=== PATIENT | female | born 1995 | race Caucasian/White ===

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

== ENCOUNTER → 2017-02-08 | Outpatient (REF) | payer OTHER ==
[~2017-02-08] MED LIST changes: +ACET50TA PO; +COLA100C3 PO; +IBUP-1114 PO; +MOM30SS PO
== END ==
LOC: M LAB REF 17:38
PROVIDERS: ATTEND Physician Assistant
DX: J02.9 Acute pharyngitis, unspecified (principal)

== ENCOUNTER → 2018-02-14 | Outpatient (REF) | payer OTHER ==
[2018-02-14 19:28] LABS: APPEARANCE, URINE CLEAR (CLEAR); BACTERIA, URINE AUTO 1+ (NEGATIVE); BILIRUBIN, URINE AUTO NEGATIVE (NEGATIVE); BLOOD, URINE BLOOD 1+ (NEGATIVE); COLOR, URINE YELLOW (YELLOW); GLUCOSE, URINE (UA) AUTO NEGATIVE (NEGATIVE); KETONE, URINE AUTO NEGATIVE (NEGATIVE); LEUKOCYTE ESTERASE, URINE AUTO 2+ (NEGATIVE); NITRITE, URINE AUTO NEGATIVE (NEGATIVE); PROTEIN, URINE AUTO NEGATIVE (NEGATIVE); RBC, URINE AUTO 9 /HPF (0-3); SPECIFIC GRAVITY URINE AUTO 1.018 (1.002-1.035); SQUAMOUS EPITHELIAL CELL UR AU 0 /HPF (0-6); UROBILINOGEN, URINE AUTO 0.2 mg/dL (0.0-2.0); WBC, URINE AUTO 33 /HPF (0-3)
== END ==
LOC: M LAB REF 09:18
DX: N39.0 Urinary tract infection, site not specified (principal)

== ENCOUNTER 2018-05-23 22:50 | Emergency (ER) | payer OTHER ==
[2018-05-24 00:21] LABS: BASO % 0.3 % (0.0-1.0); EOS # 0.3 10^3/uL (0.0-0.50); EOS % 3.7 % (0.0-3.0); HEMATOCRIT 41.2 % (36.0-47.0); HEMOGLOBIN 14.6 g/dl (12.0-15.5); IMMATURE GRANULOCYTE % 0.2 % (0-3.0); LYMPH # 2.6 10^3/uL (1.5-6.5); LYMPH % 29.3 % (24.0-44.0); MEAN CORPUSCULAR HEMOGLOBIN 31.9 pg (27.0-33.0); MEAN CORPUSCULAR HGB CONC 35.4 g/dl (32.0-36.5); MEAN CORPUSCULAR VOLUME 90.2 fl (80.0-96.0); MONO # 0.7 10^3/uL (0.0-0.8); MONO % 7.6 % (0.0-5.0); NEUTROPHILS # 5.1 10^3/uL (1.8-7.7); NEUTROPHILS % 58.9 % (36.0-66.0); PLATELET COUNT, AUTOMATED 311 10^3/uL (150-450); RED BLOOD COUNT 4.57 10^6/uL (4.00-5.40); RED CELL DISTRIBUTION WIDTH 11.4 % (11.5-14.5); WHITE BLOOD COUNT 8.7 10^3/uL (4.0-10.0)
[2018-05-24 00:25] LABS: KETONE, URINE AUTO RFX NEGATIVE (NEGATIVE); LEUKOCYTE ESTERASE UR AUTO RFX NEGATIVE (NEGATIVE); NITRITE, URINE AUTO RFX NEGATIVE (NEGATIVE); RBC, URINE AUTO RFX 1 /HPF (0-3); SPECIFIC GRAVITY UR AUTO RFX 1.005 (1.002-1.035); SQUAM EPITHELIAL CELL UR AURFX 9 /HPF (0-6); WBC, URINE AUTO RFX 2 /HPF (0-3)
[2018-05-24 00:31] LABS: INR 0.96; PROTHROMBIN TIME 12.9 SECONDS (12.1-14.4)
[2018-05-24 00:32] LABS: PARTIAL THROMBOPLASTIN TIME 31.9 SECONDS (25.4-37.6)
[2018-05-24 00:50] LABS: ANION GAP 5 MEQ/L (8-16); BLOOD UREA NITROGEN 15 MG/DL (7-18); C REACTIVE PROTEIN QUANTITATIV < 0.30 MG/DL (0.00-0.30); CALCIUM LEVEL 9.6 MG/DL (8.5-10.1); CARBON DIOXIDE LEVEL 29 MEQ/L (21-32); CHLORIDE LEVEL 107 MEQ/L (98-107); GLUCOSE, FASTING 104 MG/DL (70-100); POTASSIUM SERUM 3.7 MEQ/L (3.5-5.1); SODIUM LEVEL 141 MEQ/L (136-145)
[2018-05-24] MEDS: CIPROFLOXACIN 500 MG TAB PO (01:42)
[2018-05-24 01:43] LABS: ERYTHROCYTE SEDIMENTATION RATE 6 mm/hr (0-20)
== END 2018-05-24 01:46 | disposition home or self-care (01) ==
LOC: M ED 22:50
DX: R10.9 Unspecified abdominal pain (principal); K62.5 Hemorrhage of anus and rectum; K64.4 Residual hemorrhoidal skin tags; N39.0 Urinary tract infection, site not specified; Z87.891 Personal history of nicotine dependence; Z79.899 Other long term (current) drug therapy
CPT/HCPCS: 80048

== ENCOUNTER 2018-06-29 13:17 | Day surgery (SDC) | payer OTHER ==
[2018-06-29] MEDS: NS 1,000 ML IV (06:00)
[2018-06-29] MEDS ORDERED: PROPOFOL 200 MG/20 ML VIAL As Ordered ×2 (14:42)
[2018-06-29] MEDS ORDERED: LIDOCAINE 2% INJ 100 MG/5 ML SDV (FOR ANES.) As Ordered (14:45)
== END 2018-06-29 16:26 | disposition home or self-care (01) ==
LOC: M OPP 13:17
DX: K62.5 Hemorrhage of anus and rectum (principal); K64.0 First degree hemorrhoids; R19.7 Diarrhea, unspecified; K59.00 Constipation, unspecified; R19.4 Change in bowel habit; D64.9 Anemia, unspecified; F41.9 Anxiety disorder, unspecified; F32.9 Major depressive disorder, single episode, unspecified; G47.8 Other sleep disorders; R06.83 Snoring; Z87.891 Personal history of nicotine dependence; Z79.899 Other long term (current) drug therapy; Z80.3 Family history of malignant neoplasm of breast; Z80.1 Family history of malignant neoplasm of trachea, bronchus and lung
CPT/HCPCS: 45378

== ENCOUNTER → 2019-01-06 | Outpatient (REF) | payer OTHER ==
[~2019-01-06] MED LIST changes: -ACET50TA PO; +ANUS25SU PR; +CIPR-249 PO; +CLON0.2T PO; -COLA100C3 PO; +COLA100C5 PO; +MAPA500T2 PO; +NEXP1IMP SC; +TRAM50TA2 PO
[2019-01-06 23:16] LABS: CHLAMYDIA DNA AMPLIFICATION NEGATIVE (NEGATIVE); GC DNA AMPLIFICATION NEGATIVE (NEGATIVE)
== END ==
LOC: M LAB REF 13:53
PROVIDERS: ATTEND Physician Assistant
DX: N39.0 Urinary tract infection, site not specified (principal)

== ENCOUNTER → 2019-01-19 | Outpatient (REF) | payer OTHER ==
[2019-01-19 19:56] LABS: CHLAMYDIA DNA AMPLIFICATION NEGATIVE (NEGATIVE); GC DNA AMPLIFICATION NEGATIVE (NEGATIVE)
[2019-01-22 14:44] LABS: HPV HYBRID CAPTURE II Positive (Negative)
== END ==
LOC: M LAB REF 17:07
PROVIDERS: ATTEND Advanced Practice Midwife
DX: Z12.4 Encounter for screening for malignant neoplasm of cervix (principal); Z11.3 Encounter for screening for infections with a predominantly sexual mode of transmission; R87.610 Atypical squamous cells of undetermined significance on cytologic smear of cervix (ASC-US)
CPT/HCPCS: 87491; 87591; 87624; G0123

== ENCOUNTER 2019-02-20 16:21 | Emergency (ER) | payer OTHER ==
[~2019-02-20] VITALS: Ht 160 cm; Wt 68.9 kg
[2019-02-20 16:22] VITALS: BP 136/85
== END 2019-02-20 17:13 | disposition home or self-care (01) ==
LOC: M ED 16:21
DX: S00.03XA Contusion of scalp, initial encounter (principal); W20.8XXA Other cause of strike by thrown, projected or falling object, initial encounter; Y92.9 Unspecified place or not applicable; Y93.9 Activity, unspecified; Y99.0 Civilian activity done for income or pay

== ENCOUNTER 2019-11-19 21:38 | Emergency (ER) | payer OTHER, SELFPAY ==
[~2019-11-19] VITALS: Ht 157.5 cm; Wt 65.9 kg
[2019-11-19] MEDS ORDERED: HYDR50TA70 (21:47)
[2019-11-19] MEDS ORDERED: ALBUTEROL SULFATE 2.5 MG/0.5 ML INH NEB SOLN NEB ONE (23:15)
[2019-11-19] MEDS ORDERED: NS 1,000 ML IV ONE (23:15)
[2019-11-19 23:34] LABS: BASO # 0.1 10^3/uL (0.0-0.2); BASO % 0.6 % (0.0-1.0); EOS # 0.4 10^3/uL (0.0-0.5); HEMOGLOBIN 13.9 g/dl (12.0-15.5); LYMPH # 2.2 10^3/uL (1.5-5.0); LYMPH % 26.6 % (24.0-44.0); MEAN CORPUSCULAR HEMOGLOBIN 30.5 pg (27.0-33.0); MEAN CORPUSCULAR HGB CONC 33.9 g/dl (32.0-36.5); MEAN CORPUSCULAR VOLUME 90.1 fl (80.0-96.0); MONO # 0.4 10^3/uL (0.0-0.8); MONO % 5.3 % (0.0-5.0); NEUTROPHILS # 5.2 10^3/uL (1.5-8.5); NEUTROPHILS % 62.4 % (36.0-66.0); PLATELET COUNT, AUTOMATED 325 10^3/uL (150-450); RED BLOOD COUNT 4.55 10^6/uL (4.00-5.40); WHITE BLOOD COUNT 8.3 10^3/uL (4.0-10.0)
[2019-11-20 00:20] LABS: CK-MB VALUE MASS < 1.0 NG/ML (<3.6); CPK CREATINE PHOSPHOKINASE 77 U/L (26-192); FREE T4 1.12 NG/DL (0.76-1.46); TROPONIN I < 0.02 NG/ML (< 0.10)
--- NOTE | 2019-11-20 00:37 | REPVR ---
PROCEDURE INFORMATION: Exam: CT Angiography Chest With Contrast Exam date and time: 11/19/2019 11:02 PM Age: 24 years old Clinical indication: Shortness of breath and tachypnea; Chest pain; Type not specified; Additional info: Vape, chest pain, tachy, SOB TECHNIQUE: Imaging protocol: Computed tomographic angiography of the chest with intravenous contrast. 3D rendering: MIP and/or 3D reconstructed images were created by the technologist. Radiation optimization: All CT scans at this facility use at least one of these dose optimization techniques: automated exposure control; mA and/or kV adjustment per patient size (includes targeted exams where dose is matched to clinical indication); or iterative reconstruction. Contrast material: ISO; Contrast volume: 75 ml; Contrast route: AC; COMPARISON: No relevant prior studies available. FINDINGS: Pulmonary arteries: No filling defects in the pulmonary arteries to suggest pulmonary emboli. Aorta: Unremarkable. No aortic aneurysm. No aortic dissection. Lungs: Unremarkable. No consolidation. No masses. Pleural space: Unremarkable. No pneumothorax. No pleural effusion. Heart: Unremarkable. No cardiomegaly. No pericardial effusion. Lymph nodes: Unremarkable. No enlarged lymph nodes. Bones/joints: Unremarkable. No acute fracture. Soft tissues: Unremarkable. IMPRESSION: No filling defects in the pulmonary arteries to suggest pulmonary emboli. Electronically signed by: Angel Dueñas On 11/20/2019 00:36:44 AM
[2019-11-20] MEDS ORDERED: KETOROLAC 30 MG/ML VIAL (J1885) IV ONE (01:00)
[2019-11-20] MEDS ORDERED: HYDR50TA70 PO (01:01)
[2019-11-20] MEDS ORDERED: NAPR-837 PO (01:01)
[2019-11-20 01:25] VITALS: BP 115/68
--- NOTE | 2019-11-20 10:03 | ECGEPIP ---
[facility] - ED Test Date: 2019-11-19 Pat Name: SONNY RIVERA Department: Room: - Gender: Female [employer]: kailey : 1995 Requested By: JASON Rodas Order Number: [id number] Reading MD: Jaz Rajan Measurements Intervals [place] Rate: 102 P: 74 GA: 128 QRS: 92 QRSD: 94 T: 37 QT: 349 QTc: 456 Interpretive Statements SINUS TACHYCARDIA BORDERLINE RIGHT AXIS DEVIATION ABNORMAL RHYTHM ECG NSTTW abnormalities No prior Electronically Signed on 11-20-2019 10:03:32 EST by Jaz Rajan
== END 2019-11-20 01:27 | disposition home or self-care (01) ==
LOC: M ED 21:38
DX: R07.9 Chest pain, unspecified (principal); R00.0 Tachycardia, unspecified; R94.31 Abnormal electrocardiogram [ECG] [EKG]; F41.9 Anxiety disorder, unspecified; Z76.0 Encounter for issue of repeat prescription; F31.9 Bipolar disorder, unspecified; F17.200 Nicotine dependence, unspecified, uncomplicated; Z79.3 Long term (current) use of hormonal contraceptives; Z79.899 Other long term (current) drug therapy
CPT/HCPCS: 71275; 80047; 82550; 82553; 84439; 84443; 84484; 84702; 85025; 93005; 94640; 96361; 96374; 99284; J1885

== ENCOUNTER → 2020-10-31 | Outpatient (CLI) | payer SELFPAY ==
[~2020-10-31] MED LIST changes: +HYDR50TA70; +HYDR50TA70 PO; +NAPR-837 PO
== END ==
LOC: M LABSMTC 14:18
PROVIDERS: ATTEND Pediatrics
DX: Z20.828 Contact with and (suspected) exposure to other viral communicable diseases (principal)

== ENCOUNTER → 2020-11-28 | Outpatient (CLI) | payer OTHER ==
--- NOTE | 2020-11-28 09:50 | REP ---
INDICATION: RT LEG PAIN SWELLING ? DVT COMPARISON: None. TECHNIQUE: Imn scale and color Doppler evaluation right lower extremity using linear high frequency transducer. FINDINGS: Ultrasound examination of the right lower extremity deep venous structures from the common femoral vein to the popliteal vein demonstrates normal compressibility flow and wave patterns in response to respiration and augmentation. There is no evidence for deep venous thrombosis. IMPRESSION: No evidence for deep venous thrombosis. <Electronically signed by Ilan Davis > 11/28/20 [id number]
== END ==
LOC: M RAD 09:16
PROVIDERS: ATTEND Physician Assistant Medical
DX: R22.41 Localized swelling, mass and lump, right lower limb (principal); M79.604 Pain in right leg

== ENCOUNTER → 2020-12-07 | Outpatient (REF) | payer OTHER ==
[2020-12-09 16:08] LABS: ANTINUCLEAR ANTIBODIES DIRECT Negative (Negative)
== END ==
LOC: M LAB REF 16:18
PROVIDERS: ATTEND Physician Assistant Medical
DX: R53.83 Other fatigue (principal); M79.604 Pain in right leg; M79.605 Pain in left leg

== ENCOUNTER 2021-04-07 15:43 | Inpatient (IN) | payer OTHER ==
[~2021-04-07] VITALS: Ht 160 cm; Wt 68.2 kg
[2021-04-07] MEDS ORDERED: CLIN1SOL24 PO (15:54)
[2021-04-07 16:47] LABS: HEMATOCRIT 39.6 % (36.0-47.0); HEMOGLOBIN 13.5 g/dl (12.0-15.5); MEAN CORPUSCULAR HEMOGLOBIN 30.7 pg (27.0-33.0); MEAN CORPUSCULAR HGB CONC 34.1 g/dl (32.0-36.5); PLATELET COUNT, AUTOMATED 201 10^3/uL (150-450)
[2021-04-07 17:01] LABS: ATYPICAL LYMPH 2 % (0-5); EOSINOPHILS 2 % (0-3); LYMPHOCYTES 18 % (16-44); MONOCYTES 7 % (0-5); NEUTROPHILS 70 % (28-66); PLATELET ESTIMATE NORMAL (NORMAL)
[2021-04-07 17:04] LABS: ERYTHROCYTE SEDIMENTATION RATE 59 mm/hr (0-20)
[2021-04-07] MEDS ORDERED: AMPICILLIN SOD/SULBACTAM SOD 3 GM in D5W MINI-BAG PLUS 100 ML IV ONE (17:20)
[2021-04-07] MEDS ORDERED: dexameTHASONE 20MG/5ML VIAL (J1100 PER 1MG) IV ONE (17:20)
[2021-04-07] MEDS ORDERED: NS 1,000 ML IV ONE (17:30)
[2021-04-07 17:35] LABS: MONO SCRN NEGATIVE (NEGATIVE)
[2021-04-07] MEDS ORDERED: ISOVUE-370 76% 100ML VIAL As Ordered ONE (18:00)
[2021-04-07] MEDS ORDERED: SIMETHICONE 80MG CHEW TAB PO ONE (18:55)
--- NOTE | 2021-04-07 19:31 | REPVR ---
PROCEDURE INFORMATION: Exam: CT Neck With Contrast Exam date and time: 04/07/2021 6:31 PM Age: 25 years old Clinical indication: Abscess, tonsil; Additional info: ? Tonsil abscess TECHNIQUE: Imaging protocol: Computed tomography images of the neck with contrast. Radiation optimization: All CT scans at this facility use at least one of these dose optimization techniques: automated exposure control; mA and/or kV adjustment per patient size (includes targeted exams where dose is matched to clinical indication); or iterative reconstruction. Contrast material: ISOVUE 370; Contrast volume: 75 ml; Contrast route: INTRAVENOUS (IV); COMPARISON: CT Neck without contrast 05/21/2015 4:31 PM FINDINGS: Nasopharynx: Enlarged bilateral adenoids causing narrowing of the airway. Oropharynx: Marked enlargement of bilateral palatine and moderate enlargement of bilateral lingual tonsils causing narrowing of the pharynx. No discrete abscess formation. Hypopharynx: Unremarkable. Larynx: Unremarkable. Normal epiglottis. Retropharyngeal space: Unremarkable. Submandibular/Parotid glands: Normal. Glands are normal in size. Thyroid: Normal. No enlarged or calcified nodules. Lymph nodes: Multiple enlarged bilateral cervical chain lymph nodes, most marked in the prevascular region measuring up to 18 x 17 on the left site and about 11 x 19 on the right side likely reactive. Trachea: Visualized trachea is unremarkable. Lungs: Unremarkable as visualized. Bones/joints: Unremarkable. No acute fracture. Soft tissues: Unremarkable. IMPRESSION: Enlarged bilateral adenoids causing narrowing of the airway. Marked enlargement of bilateral palatine and moderate enlargement of bilateral lingual tonsils causing narrowing of the pharynx. No discrete abscess formation. Extensive cervical lymphadenopathy; reactive. Electronically signed by: Yokasta Bello On 04/07/2021 19:30:45 PM
[2021-04-07] MEDS ORDERED: HYDR1TAB33 PO (20:55)
[2021-04-07 21:11] LABS: RSV AMPLIFICATION NEGATIVE (NEGATIVE)
[2021-04-07] MEDS ORDERED: HYDROCORTISONE 100 MG/2 ML VIAL (J1720 PER 1) IV SCH (22:35)
--- NOTE | 2021-04-07 23:32 | HPEPDOC ---
[facility] Medical History & Physical History and Physical CHIEF COMPLAINT: HISTORY OF PRESENT ILLNESS: PAST MEDICAL HISTORY: 1. . 2. . 3. . PAST SURGICAL HISTORY: 1. . 2. . 3. . SOCIAL HISTORY: Marital status: . Resides in: Children: Employment: Tobacco use: ETOH: Illicit drug use: Tattoos done unprofessionally: . IV drug use: Other relevant social factors: FAMILY HISTORY: Father: Mother: Siblings: Children: Hereditary Diseases: Unexpected deaths due to medical reasons: ALLERGIES: Please see below. REVIEW OF SYSTEMS: CONSTITUTIONAL: . HEENT: . CARDIOVASCULAR: . RESPIRATORY: . GASTROINTESTINAL: . GENITOURINARY: . SKIN: . MUSCULOSKELETAL: . NEUROLOGICAL: . PSYCHIATRIC: . ENDOCRINE: . HEMATOLOGIC/LYMPHATIC: . HOME MEDICATIONS: Please see below. PHYSICAL EXAMINATION: VITAL SIGNS: Temperature , pulse , respiratory rate , blood pressure , pulse oximetry % on room air. GENERAL APPEARANCE: . HEENT: . CARDIOVASCULAR: . LUNGS: . ABDOMEN: . MUSCULOSKELETAL: . EXTREMITIES: . NEUROLOGICAL: . PSYCHIATRIC: . LABORATORY DATA: See below. IMAGING: MICROBIOLOGY: Please see below. ASSESSMENT: . . PLAN: 1. . Vital Signs Vital Signs Date Time Temp Pulse Resp B/P (MAP) Pulse Ox O2 Delivery O2 Flow Rate FiO2 04/07/21 21:46 98.9 100 18 128/76 (93) 100 Room Air Laboratory Data Labs 24H Laboratory Tests 2 04/07/21 16:34: Neutrophils (%) (Auto) , Nucleated Red Blood Cells % (auto) 0.0, Neutrophils 70H, Band Neutrophils 1, Lymphocytes (Manual) 18, Monocytes (Manual) 7H, Eosinophils (Manual) 2, Atypical Lymphocytes 2, Red Blood Cell Morphology NORMAL, Platelet Estimate NORMAL, Erythrocyte Sedimentation Rate 59H, C-Reactive Protein, Quantitative 14.20H, Monoscreen NEGATIVE 04/07/21 16:36: POC Glucose (Misc Panel) 89, POC Sodium (Misc Panel) 137, POC Potassium (Misc Panel) 3.8, POC Chloride (Misc Panel) 99, POC Total CO2 (Misc Panel) 27.0, POC Blood Urea Nitrogen (Misc Panel 8, POC Ionized Calcium (Misc Panel) 4.8, POC Creatinine (Misc Panel) 0.6, POC Hematocrit (Misc Panel) 39.0 04/07/21 16:37: POC Beta HCG, Quantitative < 5.0 04/07/21 20:24: Coronavirus (COVID-19)(PCR) NEGATIVE, Influenza Type A (RT-PCR) NEGATIVE, Influenza Type B (RT-PCR) NEGATIVE, Respiratory Syncytial Virus (PCR) NEGATIVE CBC/BMP Laboratory Tests 04/07/21 16:34 Microbiology Microbiology 04/07/21 Respiratory Virus Panel (PCR) (JERRY) - Final, Complete Home Medications Scheduled Clindamycin Palmitate HCl (Clindamycin Pediatric) 75 Mg/5 Ml Soln.recon, 20 ML PO TID STARTED 04/05/21 X 10 DAYS Scheduled PRN Hydroxyzine HCl (Hydroxyzine HCl) 50 Mg Tablet, 50 MG PO TID PRN for ANXIETY Allergies Coded Allergies: No Known Allergies (Unverified , 06/25/18) FUAD GRAYSON MD Apr 07, 2021 23:32
--- NOTE | 2021-04-07 23:33 | HPEPDOC ---
[facility] Medical History & Physical Date of Admission Apr 07, 2021 Date of Service: Apr 07, 2021 History and Physical CHIEF COMPLAINT: Trouble swallowing HISTORY OF PRESENT ILLNESS: 24-year-old female history of anxiety presents because of a one-week history of worsening throat pain and swelling. She tells me that on April 02 she went to outpatient clinic and was prescribed amoxicillin for sore throat and told she might have strep throat. 4 days ago she developed a fever and her throat continues to hurt and felt more swollen she again went to an outpatient clinic and prescribed clindamycin this time. She was a fever of 102.4 home over the past 2 days she began having difficulty eating she's able to clear her secretion s and breathing comfortably however she's only been eating yogurt and applesauce and it takes her a long time to swallow. In the emergency department patient had a CT neck which confirmed her neck swelling see report below. Case was discussed with Dr. Elder from ENT who believes this is likely viral in etiology and recommended patient be admitted to the PCU and to be started on IV Solu-Cortef 1000 mg every 8 hours. PAST MEDICAL/SURGICAL HISTORY: Anxiety SOCIAL HISTORY: Endorses using electronic cigarettes Denies tobacco use Denies illicit drug use FAMILY HISTORY: Reviewed and none contributory to this admission No sick contacts ALLERGIES: Please see below. REVIEW OF SYSTEMS: 10 point review of systems complete all negative otherwise stated in HPI HOME MEDICATIONS: Please see below. PHYSICAL EXAMINATION: Constitutional: Awake and alert, in no apparent distress ENT: Sclera are clear. Mucosa is moist. Posterior pharynx tonsils appear enlarged and erythematous. Her voice is clear and not hoarse she is able to speak in full sentences without difficulty breathing. Respiratory: Lungs CTA bilaterally. No respiratory distress. No use of accessory muscles. Cardiovascular: RRR S1 and S2 are normal, no murmur Gastrointestinal: Abdomen is soft, non distended, non tender, BS present. Musculoskeletal: No lower extremity edema. Neurologic: No focal neurological deficit. Mental Status: A&O x3, normal affect Skin: No visible rashes LABORATORY DATA: See below. IMAGING: CT neck: MPRESSION: Enlarged bilateral adenoids causing narrowing of the airway. Marked enlargement of bilateral palatine and moderate enlargement of bilateral lingual tonsils causing narrowing of the pharynx. No discrete abscess formation. Extensive cervical lymphadenopathy; reactive. MICROBIOLOGY: Please see below. ASSESSMENT/PLAN 25-year-old female presents with sore throat for about 1 week that has been worsening which has progressed to odynophagia. Patient admitted for throat swelling thought to be of viral etiology awaiting evaluation by ENT in the morning. # Throat swelling: Unknown etiology at this point. Could be viral. EBV complete labs pending. Initial mono test negative. respiratory viral panel negative. Discussed the case and consulted ENT doctor Jerrod who recommended Solu-Cortef 1 g every 8 hours. Close monitoring in PCU given risk of progression and airway compromise. She has a low-grade fever but no leukocytosis. Her CT neck doesn't show an abscess. Will obtain blood cultures and start the patient on Unasyn in the interim however this is viral antibiotics can be discontinued. Swallow eval. NPO except sips. IVFs. # Anxiety: Receives Atarax as needed for anxiety at home. While NPO we can use IV Ativan as needed. # DVT prophylaxis: Lovenox A [facility] Hospitalist Vital Signs Vital Signs Date Time Temp Pulse Resp B/P (MAP) Pulse Ox O2 Delivery O2 Flow Rate FiO2 04/07/21 21:46 98.9 100 18 128/76 (93) 100 Room Air Laboratory Data Labs 24H Laboratory Tests 2 04/07/21 16:34: Neutrophils (%) (Auto) , Nucleated Red Blood Cells % (auto) 0.0, Neutrophils 70H , Band Neutrophils 1, Lymphocytes (Manual) 18, Monocytes (Manual) 7H, Eosinophils (Manual) 2, Atypical Lymphocytes 2, Red Blood Cell Morphology NORMAL, Platelet Estimate NORMAL, Erythrocyte Sedimentation Rate 59H, C-Reactive Protein, Quantitative 14.20H, Monoscreen NEGATIVE 04/07/21 16:36: POC Glucose (Misc Panel) 89, POC Sodium (Misc Panel) 137, POC Potassium (Misc Panel) 3.8, POC Chloride (Misc Panel) 99, POC Total CO2 (Misc Panel) 27.0, POC Blood Urea Nitrogen (Misc Panel 8, POC Ionized Calcium (Misc Panel) 4.8, POC Creatinine (Misc Panel) 0.6, POC Hematocrit (Misc Panel) 39.0 04/07/21 16:37: POC Beta HCG, Quantitative < 5.0 04/07/21 20:24: Coronavirus (COVID-19)(PCR) NEGATIVE, Influenza Type A (RT-PCR) NEGATIVE, Influenza Type B (RT-PCR) NEGATIVE, Respiratory Syncytial Virus (PCR) NEGATIVE CBC/BMP Laboratory Tests 04/07/21 16:34 Microbiology Microbiology 04/07/21 Respiratory Virus Panel (PCR) (JERRY) - Final, Complete Home Medications Scheduled Clindamycin Palmitate HCl (Clindamycin Pediatric) 75 Mg/5 Ml Soln.recon, 20 ML PO TID STARTED 04/05/21 X 10 DAYS Scheduled PRN Hydroxyzine HCl (Hydroxyzine HCl) 50 Mg Tablet, 50 MG PO TID PRN for ANXIETY Allergies Coded Allergies: No Known Allergies (Unverified , 06/25/18) A-FIB/CHADSVASC A-FIB History Current/History of A-Fib/PAF?: No FUAD GRAYSON MD Apr 07, 2021 22:51
[2021-04-08 00:25] VITALS: BP 138/87
[2021-04-08] MEDS: NS 1,000 ML IV SCH ×4 (01:38→19:43)
[2021-04-08] MEDS: AMPICILLIN SOD/SULBACTAM SOD 3 GM in D5W MINI-BAG PLUS 100 ML IV SCH ×4 (01:39→19:43)
[2021-04-08] MEDS: LORazepam 2 MG/ML VIAL IV PRN ×4 (01:39→21:32)
[2021-04-08] MEDS: D5W IV SCH ×3 (02:38→18:15)
[2021-04-08] MEDS: HYDROCORTISONE IV SCH ×3 (02:38→18:15)
[2021-04-08] MEDS: MORPHINE 2 MG/ML 1ML VIAL (J2270) IV PRN ×4 (02:38→19:44)
[2021-04-08 04:00] VITALS: BP 127/82
[2021-04-08] MEDS ORDERED: SIMETHICONE 80MG CHEW TAB PO ONE (05:40)
[2021-04-08] MEDS ORDERED: PILL CUTTER 1 EACH XX PRN (05:45)
[2021-04-08 05:48] LABS: HEMOGLOBIN 13.4 g/dl (12.0-15.5); MEAN CORPUSCULAR HEMOGLOBIN 30.8 pg (27.0-33.0); MEAN CORPUSCULAR HGB CONC 34.4 g/dl (32.0-36.5); MEAN CORPUSCULAR VOLUME 89.7 fl (80.0-96.0); PLATELET COUNT, AUTOMATED 220 10^3/uL (150-450); RED BLOOD COUNT 4.35 10^6/uL (4.00-5.40); WHITE BLOOD COUNT 7.9 10^3/uL (4.0-10.0)
[2021-04-08 06:11] LABS: BLOOD UREA NITROGEN 8 MG/DL (7-18); CALCIUM LEVEL 8.9 MG/DL (8.5-10.1); CARBON DIOXIDE LEVEL 22 MEQ/L (21-32); CHLORIDE LEVEL 106 MEQ/L (98-107); GLOMERULAR FILTRATION RATE > 60.0 (>60); GLUCOSE, FASTING 149 MG/DL (70-100); MAGNESIUM LEVEL 2.3 MG/DL (1.8-2.4); POTASSIUM SERUM 3.8 MEQ/L (3.5-5.1); SODIUM LEVEL 136 MEQ/L (136-145)
[2021-04-08 08:00] VITALS: BP 102/63
[2021-04-08] MEDS: ENOXAPARIN 40MG/0.4ML SYRINGE (J1650 PER 10MG) SC SCH (09:00)
[2021-04-08] MEDS ORDERED: ONDANSETRON 4MG/2ML VIAL IV PRN (09:20)
[2021-04-08] MEDS: PANTOPRAZOLE 40MG VIAL (C9113 PER 1) IV SCH (09:41)
[2021-04-08 11:43] VITALS: BP 129/81
[2021-04-08 16:00] VITALS: BP 119/71
--- NOTE | 2021-04-08 17:02 | IPNPDOC ---
Subjective Date Seen The patient was seen on 04/08/21. Subjective Chief Complaint/HPI Ms. Baron is a 25 year old female with anxiety who is here with worsening throat pain and swelling. She was seen this morning. Her throat was still painful and her tonsils are very large. Otherwise, denies chest pain or dyspnea. Today, I touched base with Dr. Elder. Recommended continuing with Hydrocortisone 1000mg q8hrs for 24 hours, and then seen how she does. Objective Physical Examination General Exam: Positive: Alert, Cooperative Eye Exam: Negative: Sclera icteric ENT Exam: Positive: Other ENT (Tonsills are enlarged with white ulcer showing) Chest Exam: Positive: Clear to auscultation; Negative: Rales, Rhonchi, Wheezing Heart Exam: Positive: Tachycardic, Regular Rhythm Abdomen Exam: Positive: Normal bowel sounds, Soft; Negative: Tenderness Extremity Exam: Negative: Edema Psych Exam: Positive: Mental status NL, Mood NL Assessment /Plan Assessment Ms. Baron is a 25 year old female with anxiety who is here with worsening throat pain and swelling. Dr. Elder consulted, recommendations appreciated. Will continue with Hydrocortisone 1000mg q8hrs for 24 hours, and then seen how she does. Otherwise, EBV complete labs pending. Plan/VTE VTE Prophylaxis Ordered?: Yes Plan 1. Throat swelling -Possibly viral etiology, pending EBV labs -Patient refused strep throat swab -ENT Dr. Elder consulted, recommendations appreciated -Continuing with Hydrocortisone 1000mg q8hrs for 24 hours and re-evaluate -Unasyn day 1 2. Anxiety -Ativan as needed 3. DVT ppx -Lovenox Disposition: Pending clinical improvement. VS, I&O, 24H, Aron Vital Signs/I&O Vital Signs Date Time Temp Pulse Resp B/P (MAP) Pulse Ox O2 Delivery O2 Flow Rate FiO2 04/08/21 16:00 97.4 108 18 119/71 (87) 98 Room Air I&O- Last 24 Hours up to 6 AM 04/08/21 06:00 Intake Total 1200 ml Balance 1200 ml Laboratory Data 24H LABS Laboratory Tests 2 04/07/21 20:24: Coronavirus (COVID-19)(PCR) NEGATIVE, Influenza Type A (RT-PCR) NEGATIVE, Influenza Type B (RT-PCR) NEGATIVE, Respiratory Syncytial Virus (PCR) NEGATIVE 04/08/21 05:10: Nucleated Red Blood Cells % (auto) 0.0, Anion Gap 8, Glomerular Filtration Rate > 60.0, Calcium Level 8.9, Magnesium Level 2.3 CBC/BMP Laboratory Tests 04/08/21 05:10 Microbiology Microbiology 04/08/21 Blood Culture, Received Pending 04/08/21 Blood Culture, Received Pending 04/07/21 Respiratory Virus Panel (PCR) (JERRY) - Final, Complete ERIC RAE DO Apr 08, 2021 17:02
[2021-04-08 20:00] VITALS: BP 126/70
[2021-04-08] MEDS ORDERED: CALCIUM CARBONATE 500 MG CHEW U/D PO ONE (22:00)
[2021-04-08] MEDS ORDERED: PANTOPRAZOLE 40MG VIAL (C9113 PER 1) IV ONE (22:00)
[2021-04-09] VITALS: BP 126/74
[2021-04-09] MEDS: AMPICILLIN SOD/SULBACTAM SOD 3 GM in D5W MINI-BAG PLUS 100 ML IV SCH ×4 (01:26→18:51)
[2021-04-09] MEDS: HYDROCORTISONE IV SCH (02:34)
[2021-04-09] MEDS: D5W IV SCH (02:34)
[2021-04-09 04:00] VITALS: BP 112/74
[2021-04-09 05:40] LABS: HEMATOCRIT 33.1 % (36.0-47.0); HEMOGLOBIN 11.6 g/dl (12.0-15.5); MEAN CORPUSCULAR HEMOGLOBIN 31.1 pg (27.0-33.0); MEAN CORPUSCULAR VOLUME 88.7 fl (80.0-96.0); PLATELET COUNT, AUTOMATED 253 10^3/uL (150-450); RED BLOOD COUNT 3.73 10^6/uL (4.00-5.40); WHITE BLOOD COUNT 11.1 10^3/uL (4.0-10.0)
[2021-04-09 05:53] LABS: BLOOD UREA NITROGEN 7 MG/DL (7-18); CALCIUM LEVEL 8.3 MG/DL (8.5-10.1); CARBON DIOXIDE LEVEL 26 MEQ/L (21-32); CHLORIDE LEVEL 105 MEQ/L (98-107); CREATININE FOR GFR 0.55 MG/DL (0.55-1.30); GLOMERULAR FILTRATION RATE > 60.0 (>60); GLUCOSE, FASTING 182 MG/DL (70-100); POTASSIUM SERUM 3.5 MEQ/L (3.5-5.1); SODIUM LEVEL 139 MEQ/L (136-145)
[2021-04-09 08:40] VITALS: BP 126/84
[2021-04-09] MEDS: PANTOPRAZOLE 40MG VIAL (C9113 PER 1) IV SCH (08:44)
[2021-04-09] MEDS: ENOXAPARIN 40MG/0.4ML SYRINGE (J1650 PER 10MG) SC SCH (08:45)
[2021-04-09] MEDS: NS 1,000 ML IV SCH (08:45)
[2021-04-09] MEDS ORDERED: SLF 3 ML SYR IV PRN (11:20)
[2021-04-09 12:00] VITALS: BP 116/61
[2021-04-09] MEDS: SUCRALFATE SUSP 1GM/10ML UD PO SCH ×3 (12:18→19:51)
[2021-04-09] MEDS: LORazepam 2 MG/ML VIAL IV PRN (12:38)
[2021-04-09] MEDS: SLF 3 ML SYR IV SCH ×2 (14:00→21:36)
[2021-04-09] MEDS: MORPHINE 2 MG/ML 1ML VIAL (J2270) IV PRN (14:48)
[2021-04-09 16:00] VITALS: BP 134/89
[2021-04-09] MEDS: CALCIUM CARBONATE 500 MG CHEW U/D PO PRN (19:50)
[2021-04-09 20:00] VITALS: BP 123/81
--- NOTE | 2021-04-09 20:08 | IPNPDOC ---
Subjective Date Seen The patient was seen on 04/09/21. Subjective Chief Complaint/HPI Ms. Baron is a 25 year old female with anxiety who is here with worsening throat pain and swelling. After 24 hours of Hydrocortisone 1000mg TID, her pain improved. She tried a clear liquid diet but was not able to tolerate much of the diet. Her tonsils are still very swollen and visible. I spoke with contact assembler ENT, Dr. Rhodes, but since Dr. Elder was consulted over the weekend, it would go to him. I spoke with the nurse and they arranged transport to Dr. Elder's office. Objective Physical Examination General Exam: Positive: Alert, Cooperative Eye Exam: Negative: Sclera icteric ENT Exam: Positive: Other ENT (Tonsills are enlarged with white ulcer showing) Chest Exam: Positive: Clear to auscultation; Negative: Rales, Rhonchi, Wheezing Heart Exam: Positive: Tachycardic, Regular Rhythm Abdomen Exam: Positive: Normal bowel sounds, Soft; Negative: Tenderness Extremity Exam: Negative: Edema Psych Exam: Positive: Mental status NL, Mood NL Assessment /Plan Assessment Ms. Baron is a 25 year old female with anxiety who is here with worsening throat pain and swelling. Dr. Elder consulted, recommendations appreciated. After Hydrocortisone 1000mg q8hrs for 24 hours, she still has some difficulty swallowi ng with the swollen tonsils. Patient went to Dr. Elder's office. Otherwise, EBV complete labs pending. Plan/VTE VTE Prophylaxis Ordered?: Yes Plan 1. Tonsillitis -Possibly viral etiology, pending EBV labs -Patient refused strep throat swab -ENT Dr. Elder consulted, recommendations appreciated -Hydrocortisone 1000mg q8hrs for 24 hours -Unasyn day 2 -Will have patient work with speech/swallow therapy tomorrow 2. Anxiety -Ativan as needed 3. DVT ppx -Lovenox Disposition: Pending clinical improvement and recommendations from ENT. VS, I&O, 24H, Fishbone Vital Signs/I&O Vital Signs Date Time Temp Pulse Resp B/P (MAP) Pulse Ox O2 Delivery O2 Flow Rate FiO2 04/09/21 16:00 98.5 72 18 134/89 (104) 98 Room Air I&O- Last 24 Hours up to 6 AM 04/09/21 06:00 Intake Total 2813 ml Output Total 1450 ml Balance 1363 ml Laboratory Data 24H LABS Laboratory Tests 2 6/7/21 05:05: Nucleated Red Blood Cells % (auto) 0.0, Anion Gap 8, Glomerular Filtration Rate > 60.0, Calcium Level 8.3L CBC/BMP Laboratory Tests 04/09/21 05:05 Microbiology Microbiology 04/08/21 Blood Culture - Preliminary, Resulted No growth after 24 hours . All specim... 04/08/21 Blood Culture - Preliminary, Resulted No growth after 24 hours . All specim... 04/07/21 Respiratory Virus Panel (PCR) (JERRY) - Final, Complete ERIC RAE DO Apr 09, 2021 20:08
[2021-04-09] MEDS: hydrOXYzine 50 MG TAB PO PRN (21:35)
[2021-04-10] VITALS (7 sets, daily range): BP systolic 109–154; BP diastolic 64–99
[2021-04-10] MEDS: NS 1,000 ML IV SCH ×2 (00:03→12:54)
[2021-04-10] MEDS: GI COCKTAIL 50ML BTL(HYOSCYAMINE/MAALOX/LIDOCAINE VISCOUS)(1:3:1) PO PRN ×2 (00:03→08:34)
[2021-04-10] MEDS: AMPICILLIN SOD/SULBACTAM SOD 3 GM in D5W MINI-BAG PLUS 100 ML IV SCH ×4 (00:06→19:32)
[2021-04-10 05:57] LABS: HEMATOCRIT 30.7 % (36.0-47.0); HEMOGLOBIN 10.4 g/dl (12.0-15.5); MEAN CORPUSCULAR HEMOGLOBIN 30.3 pg (27.0-33.0); MEAN CORPUSCULAR HGB CONC 33.9 g/dl (32.0-36.5); MEAN CORPUSCULAR VOLUME 89.5 fl (80.0-96.0); PLATELET COUNT, AUTOMATED 200 10^3/uL (150-450); RED BLOOD COUNT 3.43 10^6/uL (4.00-5.40); WHITE BLOOD COUNT 8.8 10^3/uL (4.0-10.0)
[2021-04-10] MEDS: SLF 3 ML SYR IV SCH ×3 (06:15→21:05)
[2021-04-10] MEDS: MORPHINE 2 MG/ML 1ML VIAL (J2270) IV PRN (06:15)
[2021-04-10 06:36] LABS: BLOOD UREA NITROGEN 11 MG/DL (7-18); CALCIUM LEVEL 8.1 MG/DL (8.5-10.1); CARBON DIOXIDE LEVEL 29 MEQ/L (21-32); CHLORIDE LEVEL 108 MEQ/L (98-107); CREATININE FOR GFR 0.42 MG/DL (0.55-1.30); GLOMERULAR FILTRATION RATE > 60.0 (>60); GLUCOSE, FASTING 81 MG/DL (70-100); POTASSIUM SERUM 3.2 MEQ/L (3.5-5.1); SODIUM LEVEL 143 MEQ/L (136-145)
[2021-04-10] MEDS: SUCRALFATE SUSP 1GM/10ML UD PO SCH ×4 (07:30→21:00)
[2021-04-10] MEDS: ENOXAPARIN 40MG/0.4ML SYRINGE (J1650 PER 10MG) SC SCH (08:26)
[2021-04-10] MEDS ORDERED: POTASSIUM CHLORIDE 10% LIQ 20 MEQ/15 ML UDC PO ONE ×2 (08:30→12:00)
[2021-04-10] MEDS: PANTOPRAZOLE 40MG VIAL (C9113 PER 1) IV SCH (08:35)
[2021-04-10 13:05] LABS: TROPONIN I < 0.02 NG/ML (< 0.10)
[2021-04-10] MEDS ORDERED: POTASSIUM CHLORIDE 10 MEQ SR TABLET PO ONE ×2 (14:00→17:40)
[2021-04-10] MEDS ORDERED: KETOROLAC 30 MG/ML 1ML VIAL IV ONE (14:00)
[2021-04-10 16:13] LABS: EBV VIRAL CAPSID AG IgM <36.0 U/mL (0.0-35.9)
[2021-04-10] MEDS: hydrOXYzine 50 MG TAB PO PRN ×2 (16:34→23:02)
[2021-04-10 16:45] LABS: BLOOD UREA NITROGEN 8 MG/DL (7-18); CALCIUM LEVEL 8.1 MG/DL (8.5-10.1); CARBON DIOXIDE LEVEL 29 MEQ/L (21-32); CHLORIDE LEVEL 108 MEQ/L (98-107); CREATININE FOR GFR 0.59 MG/DL (0.55-1.30); GLOMERULAR FILTRATION RATE > 60.0 (>60); GLUCOSE, FASTING 94 MG/DL (70-100); HCG, SERUM QUANTITATIVE < 1.0 MIU/ML; SODIUM LEVEL 142 MEQ/L (136-145)
[2021-04-10 18:05] LABS: TROPONIN I < 0.02 NG/ML (< 0.10)
[2021-04-10] MEDS: KCL 10MEQ/100ML SWI (KRUN) 10 MEQ in IV 1 EA IV SCH ×3 (18:20→23:17)
[2021-04-10] MEDS: CALCIUM CARBONATE 500 MG CHEW U/D PO PRN (19:22)
[2021-04-10] MEDS: predniSONE 20 MG TAB PO SCH (19:45)
[2021-04-10] MEDS: KETOROLAC 30 MG/ML 1ML VIAL IV PRN (20:04)
--- NOTE | 2021-04-10 20:37 | IPNPDOC ---
Date Seen The patient was seen on 04/10/21. Progress Note SUBJECTIVE: patient was seen and examined at baseline. States that pain has slightly worsened today, but is able to tolerate PO clear liquids. Reported mild mid sternal chest pain this morning, now resolved. denies SOB, fever, chills, n/v/v. OBJECTIVE PHYSICAL EXAMINATION: VITAL SIGNS: please see below General: NAD, comfortable HEENT: PERRLA, EOMI, sclerae clear. Tonsils no longer touching. Tonsillar erythema improved. No visible exhudates. Neck: supple, normal ROM, no JVD Respiratory: lungs CTAB, no wheeze, no rales, no crackles CVS: RRR, normal S1, S2, no murmurs Abdo: soft, no masses, no hepatosplenomegaly, BS+, no rebound tenderness Extremities: no edema, pulses 2+ MSK: no joint deformities, normal ROM Neuro: no focal neuro deficits, moving all 4 extremities, CN2-12 intact. Streng th 5/5 in all 4 extremities. No nystagmus. Psych: calm, cooperative, AAO x 3 LABORATORY DATA, IMAGING STUDIES, MICROBIOLOGY: Please see below. DVT prophylaxis ordered?: lovenox ASSESSMENT AND PLAN: This is a -year-old [RACE] [GENDER] with . PROBLEMS: 1. Tonsillitis -likely viral etiology, pending EBV labs -Patient refused strep throat swab - s/p 1000 mg solumderol q8h x 24 hours, day 3 unasyn -D/w Dr. Elder. Complete a 10 day taper of prednisone, and 10 days of augmentin 875 PO BID -speech therapy recommended pureed diet, well tolerated, [facility]. 2. Anxiety -Ativan as needed 3. Hypokalemia - K 3.2 - replace 4. DVT ppx -Lovenox VS, I&O, 24H, Fishbone Vital Signs/I&O Vital Signs Date Time Temp Pulse Resp B/P (MAP) Pulse Ox O2 Delivery O2 Flow Rate FiO2 04/10/21 19:23 98.0 105 18 119/74 (89) 100 Room Air I&O- Last 24 Hours up to 6 AM 04/10/21 06:00 Intake Total 3130 ml Output Total 1050 ml Balance 2080 ml Laboratory Data 24H LABS Laboratory Tests 2 04/10/21 05:12: Nucleated Red Blood Cells % (auto) 0.0, Anion Gap 6L, Glomerular Filtration Rate > 60.0, Calcium Level 8.1L, Troponin I < 0.02 04/10/21 15:57: Anion Gap 5L, Glomerular Filtration Rate > 60.0, Calcium Level 8.1L, Troponin I < 0.02, Human Chorionic Gonadotropin, Quant < 1.0 CBC/BMP Laboratory Tests 04/10/21 05:12 04/10/21 15:57 Microbiology Microbiology 04/08/21 Blood Culture - Preliminary, Resulted No Growth after 48 hours. All Specime... 04/08/21 Blood Culture - Preliminary, Resulted No Growth after 48 hours. All Specime... 04/07/21 Respiratory Virus Panel (PCR) ([facility]) - Final, Complete NONI NINA MD Apr 10, 2021 20:37
[2021-04-11] MEDS: KCL 10MEQ/100ML SWI (KRUN) 10 MEQ in IV 1 EA IV SCH (00:41)
[2021-04-11] MEDS ORDERED: KCL 10MEQ/100ML SWI (KRUN) 10 MEQ in IV 1 EA IV ONE (01:00)
[2021-04-11] MEDS: AMPICILLIN SOD/SULBACTAM SOD 3 GM in D5W MINI-BAG PLUS 100 ML IV SCH ×3 (02:21→12:16)
[2021-04-11 03:44] VITALS: BP 112/73
[2021-04-11] MEDS: SLF 3 ML SYR IV SCH ×2 (06:16→14:00)
[2021-04-11 06:22] LABS: HEMATOCRIT 38.5 % (36.0-47.0); MEAN CORPUSCULAR HEMOGLOBIN 30.4 pg (27.0-33.0); MEAN CORPUSCULAR VOLUME 89.3 fl (80.0-96.0); PLATELET COUNT, AUTOMATED 298 10^3/uL (150-450); RED BLOOD COUNT 4.31 10^6/uL (4.00-5.40); WHITE BLOOD COUNT 8.6 10^3/uL (4.0-10.0)
[2021-04-11 06:51] LABS: BLOOD UREA NITROGEN 9 MG/DL (7-18); CALCIUM LEVEL 8.9 MG/DL (8.5-10.1); CARBON DIOXIDE LEVEL 26 MEQ/L (21-32); CHLORIDE LEVEL 105 MEQ/L (98-107); CREATININE FOR GFR 0.42 MG/DL (0.55-1.30); GLOMERULAR FILTRATION RATE > 60.0 (>60); GLUCOSE, FASTING 127 MG/DL (70-100); POTASSIUM SERUM 4.5 MEQ/L (3.5-5.1); SODIUM LEVEL 138 MEQ/L (136-145)
[2021-04-11 07:06] LABS: HEMOGLOBIN 13.1 g/dl (12.0-15.5)
[2021-04-11 07:28] VITALS: BP 102/63
[2021-04-11] MEDS: SUCRALFATE SUSP 1GM/10ML UD PO SCH ×2 (08:47→12:00)
[2021-04-11] MEDS: predniSONE 20 MG TAB PO SCH (08:48)
[2021-04-11] MEDS: ENOXAPARIN 40MG/0.4ML SYRINGE (J1650 PER 10MG) SC SCH (08:48)
[2021-04-11] MEDS: PANTOPRAZOLE 40MG VIAL (C9113 PER 1) IV SCH (08:48)
[2021-04-11] MEDS: KETOROLAC 30 MG/ML 1ML VIAL IV PRN (08:50)
[2021-04-11] MEDS ORDERED: ACET32TAB PO (12:07)
[2021-04-11] MEDS ORDERED: PRED10TA2 PO (12:07)
[2021-04-11] MEDS ORDERED: PANT40TA29 PO (12:07)
[2021-04-11] MEDS ORDERED: AMOX400S PO (12:07)
--- NOTE | 2021-04-11 12:15 | DS.PDOC ---
Discharge Summary General Date of Admission Apr 07, 2021 at 22:35 Date of Discharge 04/11/21 Discharge Summary PROCEDURES PERFORMED DURING STAY: [None]. ADMITTING DIAGNOSES: 1. . DISCHARGE DIAGNOSES: 1. . COMPLICATIONS/CHIEF COMPLAINT: Sweeling Of Throat. HISTORY OF PRESENT ILLNESS: . HOSPITAL COURSE: . DISCHARGE MEDICATIONS: Please see below. ALLERGIES: Please see below. PHYSICAL EXAMINATION ON DISCHARGE: VITAL SIGNS: Please see below. GENERAL: HEENT: NECK: CARDIOVASCULAR EXAMINATION: RESPIRATORY EXAMINATION: ABDOMINAL EXAMINATION: EXTREMITIES: SKIN: NEUROLOGICAL EXAMINATION: PSYCHIATRIC EXAMINATION: LABORATORY DATA: Please see below. IMAGING: PROGNOSIS: ACTIVITY: [As tolerated]. DIET: DISCHARGE PLAN: DISPOSITION: . DISCHARGE INSTRUCTIONS: 1. . ITEMS TO FOLLOWUP ON ON OUTPATIENT: 1. . DISCHARGE CONDITION: [Stable]. TIME SPENT ON DISCHARGE: Greater than minutes. Vital Signs/I&Os Vital Signs Date Time Temp Pulse Resp B/P (MAP) Pulse Ox O2 Delivery O2 Flow Rate FiO2 04/11/21 07:28 97.4 58 18 102/63 (76) 97 Room Air I&O- Last 24 Hours up to 6 AM 04/11/21 06:00 Intake Total 1578 ml Balance 1578 ml Laboratory Data Labs 24H Laboratory Tests 2 04/10/21 15:57: Anion Gap 5L, Glomerular Filtration Rate > 60.0, Calcium Level 8.1L, Troponin I < 0.02, Human Chorionic Gonadotropin, Quant < 1.0 04/11/21 05:51: Anion Gap 7L, Glomerular Filtration Rate > 60.0, Calcium Level 8.9, Nucleated Red Blood Cells % (auto) 0.0 CBC/BMP Laboratory Tests 04/10/21 15:57 04/11/21 05:51 Microbiology Microbiology 04/08/21 Blood Culture - Preliminary, Resulted No Growth after 72 hours. All specime... 04/08/21 Blood Culture - Preliminary, Resulted No Growth after 72 hours. All specime... 04/07/21 Respiratory Virus Panel (PCR) ([facility]) - Final, Complete Discharge Medications Scheduled Amoxicillin/Potassium Clav (Amox-Clav 400-57 mg/5 ml Susp) 400 Mg/5 Ml Susp.recon, 11 ML PO BID Pantoprazole Sodium (Pantoprazole Sodium) 40 Mg Tablet.dr, 1 TAB PO DAILY Prednisone (Prednisone) 10 Mg Tablet, 10 MG PO TAPER Take 4 tabs daily x 3 days, then 3 tabs daily x 3 days, then 2 tabs daily x 3 days, then 1 tab daily x 3 days and stop Scheduled PRN Acetaminophen (Acetaminophen) 325 Mg Tablet, 2 TAB PO Q4-6HP PRN for pain or fever Hydroxyzine HCl (Hydroxyzine HCl) 50 Mg Tablet, 50 MG PO TID PRN for ANXIETY, (Reported) Allergies Coded Allergies: No Known Allergies (Unverified , 06/25/18) NONI NINA MD Apr 11, 2021 12:15
--- NOTE | 2021-04-12 05:45 | ECGEPIP ---
[facility] Test Date: 2021-04-10 Pat Name: SONNY RIVERA Department: Room: [place] [address] Gender: Female Biological Sciences Professor: OMAR : 1995 Requested By: NONI NINA Order Number: [id number] Reading MD: Gaston Adam Measurements Intervals [place] Rate: 64 P: 7 CT: 122 QRS: 53 QRSD: 86 T: 24 QT: 400 QTc: 412 Interpretive Statements Normal sinus rhythm Cannot rule out Anterior infarct , age undetermined Since 11/19/19 electrical axis has changed Electronically Signed on 04-12-2021 5:45:21 EDT by Gaston Adam
== END 2021-04-11 15:20 | disposition home or self-care (01) | DRG 113 ==
LOC: M ED 15:43 → M ED INP 22:35 → ENRESERV 23:35 → M PCU 04-08 00:20
PROVIDERS: ADMIT Family Medicine; ATTEND Internal Medicine
DX: J03.90 Acute tonsillitis, unspecified (principal); F41.9 Anxiety disorder, unspecified; F17.290 Nicotine dependence, other tobacco product, uncomplicated; Z20.822 Contact with and (suspected) exposure to COVID-19; E87.6 Hypokalemia

== ENCOUNTER → 2022-06-14 | Outpatient (CLI) | payer OTHER ==
[~2022-06-14] MED LIST changes: +ACET32TAB PO; +AMOX400S PO; +CLIN1SOL24 PO; +ETON68IM SC; +HYDR1TAB33 PO; -NEXP1IMP SC; +PANT40TA29 PO; +PRED10TA2 PO
== END ==
LOC: M RAD 13:18
PROVIDERS: ATTEND Physician Assistant Medical
DX: R22.1 Localized swelling, mass and lump, neck (principal); E07.9 Disorder of thyroid, unspecified

== ENCOUNTER → 2022-06-20 | Outpatient (REF) | payer OTHER | LOC: M LAB REF 16:11 | PROVIDERS: ATTEND Physician Assistant Medical | DX: E04.9 Nontoxic goiter, unspecified (principal) ==

== ENCOUNTER → 2023-07-21 | Outpatient (REF) | payer OTHER ==
[~2023-07-21] MED LIST changes: +DOXY-443 PO
== END ==
LOC: M LAB REF 11:38
PROVIDERS: ATTEND Physician Assistant Medical
DX: L02.416 Cutaneous abscess of left lower limb (principal)

== ENCOUNTER 2023-11-24 15:45 | Emergency (ER) | payer OTHER ==
[~2023-11-24] VITALS: Ht 160 cm; Wt 74.1 kg
[2023-11-24 16:57] LABS: BASO % 0.5 % (0.0-1.0); EOS # 0.3 10^3/uL (0.0-0.5); EOS % 3.6 % (0.0-3.0); HEMATOCRIT 37.6 % (36.0-47.0); HEMOGLOBIN 12.9 g/dl (12.0-15.5); LYMPH # 1.9 10^3/uL (1.5-5.0); LYMPH % 25.1 % (24.0-44.0); MEAN CORPUSCULAR HEMOGLOBIN 31.1 pg (27.0-33.0); MEAN CORPUSCULAR HGB CONC 34.3 g/dl (32.0-36.5); MEAN CORPUSCULAR VOLUME 90.6 fl (80.0-96.0); MONO # 0.5 10^3/uL (0.0-0.8); MONO % 7.1 % (2.0-8.0); NEUTROPHILS # 4.8 10^3/uL (1.5-8.5); NEUTROPHILS % 63.4 % (36.0-66.0); PLATELET COUNT, AUTOMATED 321 10^3/uL (150-450); RED BLOOD COUNT 4.15 10^6/uL (4.00-5.40); WHITE BLOOD COUNT 7.5 10^3/uL (4.0-10.0)
[2023-11-24 17:16] LABS: BLOOD UREA NITROGEN 10 MG/DL (9-23); CALCIUM LEVEL 9.1 MG/DL (8.5-10.1); CARBON DIOXIDE LEVEL 26 MMOL/L (20-31); CHLORIDE LEVEL 109 MMOL/L (98-107); CREATININE FOR GFR 0.77 MG/DL (0.55-1.30); GLOMERULAR FILTRATION RATE > 60.0 (>60); GLUCOSE, FASTING 92 MG/DL (60-100); SODIUM LEVEL 140 MMOL/L (136-145)
[2023-11-24 17:29] LABS: HCG, SERUM QUANTITATIVE 1617.3 MIU/ML (<4.2)
[2023-11-24 19:33] VITALS: BP 159/73; TEMP 98.4; O2SAT 100
== END 2023-11-24 20:34 | disposition home or self-care (01) ==
LOC: M ED 15:45
DX: O20.0 Threatened abortion (principal); O99.331 Smoking (tobacco) complicating pregnancy, first trimester; F17.290 Nicotine dependence, other tobacco product, uncomplicated; Z3A.00 Weeks of gestation of pregnancy not specified

== ENCOUNTER → 2023-11-26 | Outpatient (CLI) | payer OTHER | LOC: M LAB 13:44 | PROVIDERS: ATTEND Physician Assistant Medical | DX: O20.0 Threatened abortion (principal) ==

== ENCOUNTER → 2023-11-28 | Outpatient (REF) | payer OTHER | LOC: M LAB REF 12:24 | PROVIDERS: ATTEND Physician Assistant Medical | DX: R10.12 Left upper quadrant pain (principal) ==

== ENCOUNTER → 2023-12-03 | Outpatient (CLI) | payer OTHER ==
[~2023-12-03] MED LIST changes: +GASTROGRAFIN SOLUTION 30ML ONE; +ISOVUE-370 76% 100ML VIAL ONE
== END ==
LOC: M PLAIMG 12:42
PROVIDERS: ATTEND Physician Assistant Medical
DX: O03.89 Complete or unspecified spontaneous abortion with other complications (principal); R10.12 Left upper quadrant pain
CPT/HCPCS: 74177; Q9963; Q9967

== ENCOUNTER → 2024-02-18 | Outpatient (REF) | payer OTHER ==
[~2024-02-18] MED LIST changes: -GASTROGRAFIN SOLUTION 30ML ONE; -ISOVUE-370 76% 100ML VIAL ONE
[2024-02-18 18:34] LABS: C REACTIVE PROTEIN QUANTITATIV < 0.40 MG/DL (<1.0)
[2024-02-18 18:47] LABS: THYROID PEROXIDASE ANTIBODY > 1300.0 U/ML (<60.0)
== END ==
LOC: M LAB REF 16:32
PROVIDERS: ATTEND Physician Assistant Medical
DX: R53.82 Chronic fatigue, unspecified (principal); E06.3 Autoimmune thyroiditis

== ENCOUNTER → 2024-03-10 | Outpatient (CLI) | payer OTHER ==
[~2024-03-10] MED LIST changes: +DOXY-323 PO; -DOXY-443 PO
== END ==
LOC: M RAD 14:06
PROVIDERS: ATTEND Physician Assistant Medical
DX: E06.3 Autoimmune thyroiditis (principal); E04.1 Nontoxic single thyroid nodule

== ENCOUNTER → 2024-07-09 | Outpatient (REF) | payer OTHER | LOC: M LAB REF 16:26 | PROVIDERS: ATTEND Internal Medicine | DX: R10.31 Right lower quadrant pain (principal) ==

== ENCOUNTER → 2024-10-20 | Outpatient (REF) | payer OTHER ==
[~2024-10-20] MED LIST changes: -DOXY-323 PO; +DOXY-441 PO
[2024-10-20 13:37] LABS: C REACTIVE PROTEIN QUANTITATIV < 0.50 MG/DL (<1.0)
[2024-10-20 13:41] LABS: PROLACTIN 6.35 NG/ML; TOTAL T3 102.5 NG/DL (60.0-181.0)
[2024-10-20 13:42] LABS: CORTISOL AM 27.2 UG/DL (4.3-22.4)
[2024-10-20 13:43] LABS: THYROID PEROXIDASE ANTIBODY > 1300.0 U/ML (<60.0)
== END ==
LOC: M LAB REF 13:11
PROVIDERS: ATTEND Physician Assistant Medical
DX: E06.3 Autoimmune thyroiditis (principal); R53.82 Chronic fatigue, unspecified; R00.2 Palpitations

== ENCOUNTER → 2024-11-08 | Outpatient (CLI) | payer OTHER ==
[~2024-11-08] MED LIST changes: +PROHANCE 279.3MG/ML 15ML VIAL As Ordered ONE
== END ==
LOC: M RAD 08:03
PROVIDERS: ATTEND Physician Assistant Medical
DX: G43.909 Migraine, unspecified, not intractable, without status migrainosus (principal)
CPT/HCPCS: 70553; A9576